=== PATIENT | female | born 1945 | race African-American/Black ===

== ENCOUNTER → 2016-10-24 | Outpatient (CLI) | payer OTHER ==
[~2016-10-24] MED LIST: CIPR-173 PO; CLON0.1T PO; ENAL2.5T PO; ERGO1CAP6 PO; NAPR-223 PO
== END | disposition home or self-care (01) ==
LOC: XY 09:01
PROVIDERS: ATTEND Internal Medicine
DX: I10 Essential (primary) hypertension (principal); N28.1 Cyst of kidney, acquired; Z95.5 Presence of coronary angioplasty implant and graft
CPT/HCPCS: 76775; 93923

== ENCOUNTER 2016-12-10 07:48 | Inpatient (IN) | payer OTHER ==
[~2016-12-10] VITALS: Ht 165.1 cm; Wt 75.9 kg
[2016-12-10] MEDS ORDERED: cloNIDine HCL 0.1 MG TAB PO ONE (08:30)
[2016-12-10 09:56] LABS: Basophils # (auto) 0 uL; Basophils % (auto) 0.3 % (0.0-2.0); Eosinophils # (auto) 0.2 uL; Eosinophils % (auto) 2.3 % (0.0-7.0); Hematocrit 37.1 % (36.0-46.0); Hemoglobin 12.3 g/dL (12.2-16.2); Lymphocytes # (auto) 1.7 uL; Lymphocytes % (auto) 22.6 % (10.0-50.0); Mean Corpuscular Hemoglobin 30.9 pg (28.0-32.0); Mean Corpuscular Volume 93.7 fL (80.0-100.0); Mean Platelet Volume 8.5 fL (7.4-10.4); Monocytes # (auto) 0.5 uL; Monocytes % (auto) 7.1 % (0.0-12.0); Neutrophils % (auto) 67.7 % (37.0-80.0); Platelet Count (auto) 284 10^3/uL (140-450); Red Cell Distribution Width 14.3 % (11.6-16.0); White Blood Cell 7.4 10^3/uL (4.4-10.8)
[2016-12-10 10:10] LABS: Albumin 3.7 g/dL (3.4-5.0); BUN/Creatinine Ratio 15.3; Bilirubin, Total 1.3 mg/dL (0.2-1.0); Calcium 8.8 mg/dL (8.5-10.1); Potassium 3.7 mmol/L (3.5-5.1); Total Protein 7.7 g/dL (6.4-8.2)
[2016-12-10] MEDS ORDERED: SODIUM CHLORIDE 0.9% 1,000 ML IV ONE (10:25)
[2016-12-10] MEDS ORDERED: ENOXAPARIN SOD 80 MG/0.8ML SYRINGE SC ONE (10:30)
[2016-12-10] MEDS ORDERED: ASPirin 81 mg TAB PO ONE (10:30)
[2016-12-10] MEDS ORDERED: HCTZ 25 MG TAB PO ONE (11:30)
[2016-12-10] MEDS ORDERED: cloNIDine HCL 0.1 MG TAB PO PRN (11:30)
[2016-12-10] MEDS ORDERED: POTASSIUM CHL 10 Meq TABLET PO ONE (11:30)
[2016-12-10] MEDS ORDERED: HYDR-2652 PO (11:43)
[2016-12-10] MEDS ORDERED: MET50T PO (11:43)
[2016-12-10] MEDS ORDERED: OLME20TA19 PO (11:43)
[2016-12-10] MEDS ORDERED: ATOR20TA50 PO (11:43)
[2016-12-10] MEDS ORDERED: FURO40TA4 PO (11:43)
[2016-12-10] MEDS ORDERED: TEMAZEPAM 15 MG CAP PO PRN (11:45)
[2016-12-10] MEDS ORDERED: NITROGLYCERIN 0.4 MG SL TAB SL PRN (11:45)
[2016-12-10] MEDS ORDERED: MORPHINE SULF INJ 2 MG/ML SYRINGE 1ML IV PRN ×2 (11:45)
[2016-12-10] MEDS ORDERED: DOCUSATE SOD 100 MG CAP PO PRN (11:45)
[2016-12-10] MEDS ORDERED: ONDANSETRON HCL 4 MG/2 ML VIAL IV PRN (11:45)
[2016-12-10] MEDS ORDERED: ACETAMINOPHEN 325 MG TAB PO PRN (11:45)
[2016-12-10] MEDS: METOPROLOL TARTRATE 25 MG TAB PO SCH ×2 (12:00→21:54)
[2016-12-10] MEDS: FUROSEMIDE 40 MG TAB PO SCH (12:17)
[2016-12-10] MEDS: MULTIPLE VITAMIN TAB PO SCH (12:18)
[2016-12-10] MEDS: ENALAPRIL MALEATE 10 MG TAB PO SCH ×2 (12:18→21:54)
[2016-12-10] MEDS: hydrALAZINE HCL 25 MG TAB PO SCH ×2 (14:43→21:54)
[2016-12-10] MEDS: SODIUM CHLOR 0.9% PF (SALINE LOCK) 10ML VIAL IV SCH ×2 (14:43→21:53)
[2016-12-10] MEDS: LABETALOL HCL 5 MG/ML 4ML SYRINGE IV PRN ×2 (16:30→18:55)
[2016-12-10 17:00] VITALS: BP 156/90
[2016-12-10] MEDS: HYDROcodone-ACET 5/325MG TAB PO PRN (17:27)
[2016-12-10 22:00] VITALS: BP 149/72
[2016-12-10] MEDS ORDERED: ATORVASTATIN 20 MG TAB PO SCH (22:00)
[2016-12-11 05:00] VITALS: BP 121/52
[2016-12-11] MEDS: hydrALAZINE HCL 25 MG TAB PO SCH ×2 (05:31→13:51)
[2016-12-11] MEDS: SODIUM CHLOR 0.9% PF (SALINE LOCK) 10ML VIAL IV SCH ×2 (05:42→14:00)
[2016-12-11 06:32] LABS: Basophils # (auto) 0 uL; Basophils % (auto) 0.5 % (0.0-2.0); Eosinophils # (auto) 0.2 uL; Eosinophils % (auto) 2.7 % (0.0-7.0); Hematocrit 37.1 % (36.0-46.0); Hemoglobin 12.3 g/dL (12.2-16.2); Lymphocytes # (auto) 2.5 uL; Mean Corpuscular Volume 93.8 fL (80.0-100.0); Mean Platelet Volume 8.4 fL (7.4-10.4); Monocytes # (auto) 0.6 uL; Monocytes % (auto) 8.1 % (0.0-12.0); Neutrophils # (auto) 4.6 uL; Neutrophils % (auto) 57.7 % (37.0-80.0); Platelet Count (auto) 309 10^3/uL (140-450); White Blood Cell 7.9 10^3/uL (4.4-10.8)
[2016-12-11 06:42] LABS: Calcium 8.4 mg/dL (8.5-10.1); Potassium 3.6 mmol/L (3.5-5.1)
[2016-12-11 06:46] LABS: Albumin 3.6 g/dL (3.4-5.0); BUN/Creatinine Ratio 18.2
[2016-12-11 07:03] LABS: Bilirubin, Total 1.1 mg/dL (0.2-1.0); Total Protein 7.7 g/dL (6.4-8.2)
[2016-12-11 08:05] VITALS: BP 121/52
[2016-12-11 09:00] VITALS: BP 135/64
[2016-12-11] MEDS ORDERED: HCTZ 25 MG TAB PO SCH (10:00)
[2016-12-11] MEDS ORDERED: POTASSIUM CHL 10 Meq TABLET PO SCH (10:00)
[2016-12-11] MEDS ORDERED: ASPirin-EC 81 mg tab PO SCH (10:00)
[2016-12-11] MEDS ORDERED: PATIENTS OWN MEDICATION PO SCH ×2 (10:00)
[2016-12-11] MEDS: MULTIPLE VITAMIN TAB PO SCH (10:22)
[2016-12-11] MEDS: METOPROLOL TARTRATE 25 MG TAB PO SCH (10:22)
[2016-12-11] MEDS: FUROSEMIDE 40 MG TAB PO SCH (10:22)
[2016-12-11] MEDS: ENALAPRIL MALEATE 10 MG TAB PO SCH (10:23)
[2016-12-11 13:00] VITALS: BP 146/61
[2016-12-11] MEDS: HYDROcodone-ACET 5/325MG TAB PO PRN (13:51)
[2016-12-11 17:00] VITALS: BP 185/83
[2016-12-11] MEDS ORDERED: amLODIPine BESYLATE 5 MG TAB PO STA (17:24)
[2016-12-11] MEDS ORDERED: CLON0.1T PO (17:43)
[2016-12-11 18:34] VITALS: BP 185/83
== END 2016-12-11 18:55 | disposition home or self-care (01) | DRG 292 ==
LOC: ER 07:48 → TELE 07:49 → TELE-E-ADS 13:53 → TELE-EAST 14:55
PROVIDERS: ADMIT Internal Medicine; ATTEND Internal Medicine
DX: I13.0 Hypertensive heart and chronic kidney disease with heart failure and stage 1 through stage 4 chronic kidney disease, or unspecified chronic kidney disease (principal); I50.32 Chronic diastolic (congestive) heart failure; R51 Headache; N18.2 Chronic kidney disease, stage 2 (mild); M06.9 Rheumatoid arthritis, unspecified; E78.5 Hyperlipidemia, unspecified; Z83.3 Family history of diabetes mellitus; Z80.9 Family history of malignant neoplasm, unspecified; Z82.49 Family history of ischemic heart disease and other diseases of the circulatory system; Z98.890 Other specified postprocedural states
CPT/HCPCS: 36415; 71010; 80053; 84484; 85025; 93005; 94761; 96360; 96372; J3490

== ENCOUNTER → 2017-04-01 | Outpatient (CLI) | payer OTHER ==
[~2017-04-01] MED LIST changes: +ATOR20TA50 PO; -CIPR-173 PO; +FURO40TA4 PO; +HYDR-2652 PO; +MET50T PO; -NAPR-223 PO
[2017-04-01 09:22] LABS: Basophils # (auto) 0 uL; Basophils % (auto) 0.4 % (0.0-2.0); CONDITION Y; Eosinophils # (auto) 0.2 uL; Eosinophils % (auto) 2.2 % (0.0-7.0); Hematocrit 38.1 % (36.0-46.0); Hemoglobin 12.6 g/dL (12.2-16.2); Lymphocytes # (auto) 1.9 uL; Lymphocytes % (auto) 22.3 % (10.0-50.0); Mean Corpuscular Hemoglobin 31.6 pg (28.0-32.0); Mean Corpuscular Volume 95.5 fL (80.0-100.0); Mean Platelet Volume 8.9 fL (7.4-10.4); Monocytes # (auto) 0.5 uL; Monocytes % (auto) 5.6 % (0.0-12.0); Neutrophils % (auto) 69.5 % (37.0-80.0); Platelet Count (auto) 272 10^3/uL (140-450); Red Cell Distribution Width 14.9 % (11.6-16.0); White Blood Cell 8.7 10^3/uL (4.4-10.8)
[2017-04-01 09:26] LABS: Albumin 3.7 g/dL (3.4-5.0); BUN/Creatinine Ratio 15.9; Bilirubin, Total 1.1 mg/dL (0.2-1.0); Phosphorus 2.9 mg/dL (2.5-4.90); Total Protein 7.7 g/dL (6.4-8.2)
== END | disposition home or self-care (01) ==
LOC: LAB 08:17
PROVIDERS: ATTEND Internal Medicine
DX: Z00.00 Encounter for general adult medical examination without abnormal findings (principal); I10 Essential (primary) hypertension; E78.2 Mixed hyperlipidemia
CPT/HCPCS: 36415; 80053; 80061; 84100; 84443; 85025

== ENCOUNTER 2017-10-03 21:38 | Emergency (ER) | payer MEDICARE, OTHER ==
[~2017-10-03] VITALS: Ht 165.1 cm; Wt 68.9 kg
[~2017-10-03 21:38] MED LIST changes: -HYDR-2652 PO; +HYDR50TA15 PO
[2017-10-03] MEDS ORDERED: cloNIDine HCL 0.1 MG TAB ONE (22:01)
[2017-10-03] MEDS ORDERED: ONDANSETRON HCL 4 MG/2 ML VIAL IV ONE (22:15)
[2017-10-03] MEDS ORDERED: SODIUM CHLORIDE 0.9% 1,000 ML IV ONE (22:15)
[2017-10-03] MEDS ORDERED: cloNIDine HCL 0.1 MG TAB PO ONE (22:15)
[2017-10-03 22:55] LABS: Basophils # (auto) 0.1 uL; Basophils % (auto) 1.2 % (0.0-2.0); Eosinophils # (auto) 0.2 uL; Eosinophils % (auto) 1.4 % (0.0-7.0); Hematocrit 41.7 % (36.0-46.0); Hemoglobin 13.4 g/dL (12.2-16.2); Lymphocytes # (auto) 1.7 uL; Lymphocytes % (auto) 13.3 % (10.0-50.0); Mean Corpuscular Hemoglobin 30.8 pg (28.0-32.0); Mean Corpuscular Hgb Conc. 32.1 g/dL (32.0-36.0); Mean Corpuscular Volume 95.8 fL (80.0-100.0); Monocytes # (auto) 0.7 uL; Monocytes % (auto) 5.4 % (0.0-12.0); Neutrophils # (auto) 9.7 uL; Neutrophils % (auto) 78.7 % (37.0-80.0); Nucleated Red Blood Cells % 0.1 %; Platelet Count (auto) 224 10^3/uL (140-450); Red Blood Cells 4.35 10^6/uL (4.0-5.20); Red Cell Distribution Width 14.1 % (11.8-14.3); White Blood Cell 12.4 10^3/uL (4.4-10.8)
[2017-10-03 23:34] LABS: Albumin 3.9 g/dL (3.4-5.0); BUN/Creatinine Ratio 15.5; Bilirubin, Total 1.3 mg/dL (0.2-1.0); Calcium 8.8 mg/dL (8.5-10.1); Potassium 3.5 mmol/L (3.5-5.1); Total Protein 8.1 g/dL (6.4-8.2)
[2017-10-04] MEDS ORDERED: SODIUM CHLORIDE 0.9% 1,000 ML IV ONE (08:30)
[2017-10-04] MEDS ORDERED: hydrALAZINE HCL 20 MG/ML VL IV ONE (08:30)
[2017-10-04 10:19] LABS: Urine Specific Gravity 1.036 (1.001-1.035)
[2017-10-04 10:20] LABS: Urine Blood Negative /uL (Negative)
[2017-10-04 10:23] LABS: Urine Bacteria FEW /hpf (None Seen); Urine WBC 6 /hpf (0 - 5)
[2017-10-04] MEDS ORDERED: GASTROGRAFIN 120 ML SOL ONE (11:05)
[2017-10-04 16:17] VITALS: BP 208/90
[2017-10-04] MEDS ORDERED: LABETALOL HCL 5 MG/ML ML 20ML VIAL IV ONE (17:00)
== END 2017-10-04 18:23 | disposition home or self-care (01) ==
LOC: ER 21:38
DX: K52.9 Noninfective gastroenteritis and colitis, unspecified (principal); N39.0 Urinary tract infection, site not specified; I11.0 Hypertensive heart disease with heart failure; I50.9 Heart failure, unspecified; M06.9 Rheumatoid arthritis, unspecified; E78.5 Hyperlipidemia, unspecified; Z87.442 Personal history of urinary calculi
CPT/HCPCS: 36415; 71046; 74176; 74250; 80053; 81001; 82150; 83690; 83735; 84443; 84484; 85025; 93005; 94761; 96361; 96374; 96375; 99285; J0360; J7030; Q9963

== ENCOUNTER 2019-02-13 19:46 | Inpatient (IN) | payer MEDICARE, MEDICAID ==
[~2019-02-13] VITALS: Ht 167.6 cm; Wt 79.1 kg
[2019-02-13] MEDS ORDERED: IODIXANOL 320MG/ML 100ML BTL IV ONE (20:41)
[2019-02-13 21:30] LABS: Basophils # (auto) 0.1 uL; Eosinophils # (auto) 0.1 uL; Eosinophils % (auto) 0.5 % (0.0-7.0); Hematocrit 37.5 % (36.0-46.0); Hemoglobin 12.4 g/dL (12.2-16.2); Lymphocytes % (auto) 8.8 % (10.0-50.0); Mean Corpuscular Hemoglobin 30.1 pg (28.0-32.0); Mean Corpuscular Volume 91.4 fL (80.0-100.0); Monocytes # (auto) 0.4 uL; Monocytes % (auto) 3.2 % (0.0-12.0); Neutrophils # (auto) 9.8 uL; Neutrophils % (auto) 86.5 % (37.0-80.0); Platelet Count (auto) 310 10^3/uL (140-450); Red Cell Distribution Width 14.4 % (11.8-14.3); White Blood Cell 11.3 10^3/uL (4.4-10.8)
[2019-02-13 21:39] LABS: Albumin 3.9 g/dL (3.4-5.0); Anion Gap 7 (5-15); Blood Urea Nitrogen 14 mg/dL (7-18); Calcium 8.8 mg/dL (8.5-10.1); Carbon Dioxide 28 mmol/L (21-32); Chloride 104 mmol/L (98-107); Glucose 131 mg/dL (74-106); Lipase 97 U/L (73-393); Potassium 3.4 mmol/L (3.5-5.1); Sodium 139 mmol/L (136-145)
[2019-02-13 21:46] LABS: Alanine Aminotransferase 19 U/L (13-56); Alkaline Phosphatase 78 U/L (45-117); Aspartate Aminotransferase 22 U/L (15-37); BUN/Creatinine Ratio 16.9; Bilirubin, Total 0.8 mg/dL (0.2-1.0); GFR African American 86 mL/min; GFR Non-African American 71 mL/min; Total Protein 8.5 g/dL (6.4-8.2)
[2019-02-14] MEDS ORDERED: ONDANSETRON HCL 4 MG/2 ML VIAL IV ONE (02:45)
[2019-02-14] MEDS ORDERED: fentaNYL CITRATE 100 MCG/2 ML VL IV ONE (02:45)
[2019-02-14] MEDS ORDERED: KETOROLAC TROMETH 30 MG/ML 1ML VIAL IV ONE (02:45)
[2019-02-14] MEDS ORDERED: LEVOFLOXACIN 750MG 150 ML IV ONE (02:45)
[2019-02-14 02:46] LABS: Urine Bacteria NONE SEEN /hpf (None Seen); Urine Blood TRACE /uL (Negative); Urine Mucus FEW (None Seen); Urine WBC 1 /hpf (0 - 5)
[2019-02-14 03:01] LABS: Urine Specific Gravity > 1.050 (1.001-1.035)
[2019-02-14] MEDS ORDERED: SODIUM CHLORIDE 0.9% 1,000 ML IV SCH (03:15)
[2019-02-14] MEDS ORDERED: MORPHINE SULF INJ 2 MG/ML SYRINGE 1ML IV PRN (03:15)
[2019-02-14] MEDS ORDERED: ACETAMINOPHEN 500 MG TAB PO PRN (03:15)
[2019-02-14] MEDS ORDERED: ONDANSETRON HCL 4 MG/2 ML VIAL IV PRN (03:15)
[2019-02-14] MEDS ORDERED: hydrALAZINE HCL 20 MG/ML VL IV PRN (03:30)
[2019-02-14 05:54] VITALS: BP 154/95
[2019-02-14] MEDS ORDERED: metroNIDAZOLE 500MG/100ML 100 ML IV SCH (06:00)
[2019-02-14 06:05] LABS: Basophils # (auto) 0.1 uL; Basophils % (auto) 0.7 % (0.0-2.0); Eosinophils # (auto) 0 uL; Eosinophils % (auto) 0.3 % (0.0-7.0); Hematocrit 34.6 % (36.0-46.0); Hemoglobin 11.6 g/dL (12.2-16.2); Lymphocytes % (auto) 13.1 % (10.0-50.0); Mean Corpuscular Hemoglobin 30.8 pg (28.0-32.0); Mean Corpuscular Hgb Conc. 33.7 g/dL (32.0-36.0); Mean Corpuscular Volume 91.4 fL (80.0-100.0); Monocytes # (auto) 0.4 uL; Monocytes % (auto) 5.4 % (0.0-12.0); Neutrophils # (auto) 6.2 uL; Neutrophils % (auto) 80.5 % (37.0-80.0); Platelet Count (auto) 287 10^3/uL (140-450); Red Blood Cells 3.78 10^6/uL (4.0-5.20); Red Cell Distribution Width 14.3 % (11.8-14.3); White Blood Cell 7.7 10^3/uL (4.4-10.8)
[2019-02-14 06:13] LABS: Calcium 8.8 mg/dL (8.5-10.1); Potassium 3.3 mmol/L (3.5-5.1)
[2019-02-14 06:21] LABS: INR 0.92 (0.9-1.15); Partial Thromboplastin Time 26.1 sec (23.64-32.05)
--- NOTE | 2019-02-14 07:20 | NUR ---
Opening Shift Note Assumed care of patient, awake and alert. No S/S of distress/SOB or pain. Instructed on POC and to call for assist PRN, will continue to monitor for changes Q1hr and PRN.
[2019-02-14 08:00] VITALS: BP 132/65
[2019-02-14 09:00] VITALS: BP 132/65
[2019-02-14] MEDS ORDERED: cefTRIAXone 1GM/50ML D5W 50 ML IV SCH (09:00)
[2019-02-14] MEDS ORDERED: FAMOTIDINE (10MG/ML) 2ML VL IV SCH (10:00)
[2019-02-14] MEDS ORDERED: amLODIPine BESYLATE 5 MG TAB PO SCH (10:00)
--- NOTE | 2019-02-14 11:10 | NUR ---
Surgical Consult Received call from Dr. Leon. Orders received
[2019-02-14] MEDS ORDERED: GASTROGRAFIN 120 ML SOL ONE (12:13)
[2019-02-14 13:00] VITALS: BP 154/80
--- NOTE | 2019-02-14 13:37 | NUR ---
AMA Patient pulled out IV and NG Tube stating she is going to leave AMA. Dr. Lomas notified and aware. Patient walked out of room and towards door before able to sign AMA paperwork. Security notified.
--- NOTE | 2019-02-14 13:51 | NUR ---
Patient's son called and notified.
--- NOTE | 2019-02-14 13:52 | NUR ---
Security able to bring patient back to floor to sign AMA paperwork. Addendum: 02/14/19 at 1401 by SEVERO CABRERA RN AMA Note GILBERT BLOOD states they want to leave the hospital Against Medical Advice (AMA). Patient encouraged to stay for further treatment/stabilization. KATE HERZOG MD notified of patient's wishes. Patient advised of the risks and benefits of leaving AMA. Patient verbalized understanding. Patient encouraged to return to the ER if symptoms do not improve or worsen.
== END 2019-02-14 14:00 | disposition left against medical advice (07) | DRG 395 ==
LOC: ER 19:49 → OVERFLOW 02-14 03:18 → CENTRAL 02-14 05:20
PROVIDERS: ADMIT Nurse Practitioner Family; ATTEND Nurse Practitioner Family
DX: K46.0 Unspecified abdominal hernia with obstruction, without gangrene (principal); I11.0 Hypertensive heart disease with heart failure; F03.90 Unspecified dementia, unspecified severity, without behavioral disturbance, psychotic disturbance, mood disturbance, and anxiety; F41.9 Anxiety disorder, unspecified; M19.90 Unspecified osteoarthritis, unspecified site; Z53.21 Procedure and treatment not carried out due to patient leaving prior to being seen by health care provider; I50.9 Heart failure, unspecified; Z79.899 Other long term (current) drug therapy; Z82.49 Family history of ischemic heart disease and other diseases of the circulatory system; Z98.51 Tubal ligation status; Z83.3 Family history of diabetes mellitus; Z87.442 Personal history of urinary calculi
CPT/HCPCS: 36415; 71045; 74177; 80048; 80053; 81001; 83690; 84484; 85025; 85610; 85730; 93005; 94761; 96365; 96367; 96375; G0378; J0696; J1885; J1956; J2405; J3490; Q9967

== ENCOUNTER 2019-02-14 15:59 | Emergency (ER) | payer MEDICARE, MEDICAID ==
[~2019-02-14] VITALS: Ht 170.2 cm; Wt 63.5 kg
[2019-02-14 16:58] VITALS: BP 143/80
[2019-02-14 17:35] LABS: Albumin 3.7 g/dL (3.4-5.0); Basophils # (auto) 0.1 uL; Basophils % (auto) 0.7 % (0.0-2.0); Calcium 8.9 mg/dL (8.5-10.1); Eosinophils # (auto) 0.1 uL; Eosinophils % (auto) 1.5 % (0.0-7.0); Hematocrit 38.7 % (36.0-46.0); Hemoglobin 12.6 g/dL (12.2-16.2); Lymphocytes # (auto) 1.4 uL; Lymphocytes % (auto) 15.7 % (10.0-50.0); Mean Corpuscular Hemoglobin 29.8 pg (28.0-32.0); Mean Corpuscular Hgb Conc. 32.6 g/dL (32.0-36.0); Mean Corpuscular Volume 91.4 fL (80.0-100.0); Monocytes # (auto) 0.6 uL; Monocytes % (auto) 6.8 % (0.0-12.0); Neutrophils # (auto) 6.5 uL; Neutrophils % (auto) 75.3 % (37.0-80.0); Nucleated Red Blood Cells % 0.1 %; Platelet Count (auto) 313 10^3/uL (140-450); Potassium 3.2 mmol/L (3.5-5.1); Red Blood Cells 4.24 10^6/uL (4.0-5.20); Red Cell Distribution Width 14.4 % (11.8-14.3); White Blood Cell 8.6 10^3/uL (4.4-10.8)
[2019-02-14 17:38] LABS: BUN/Creatinine Ratio 15.6; Bilirubin, Total 1.1 mg/dL (0.2-1.0); Total Protein 8.3 g/dL (6.4-8.2)
[2019-02-14] MEDS ORDERED: POTASSIUM EFFERVESENT TAB 25 MEQ PO ONE (18:15)
== END 2019-02-14 18:43 | disposition home or self-care (01) ==
LOC: ER 16:00
DX: E87.6 Hypokalemia (principal); F41.9 Anxiety disorder, unspecified; M19.90 Unspecified osteoarthritis, unspecified site; E78.5 Hyperlipidemia, unspecified; I11.0 Hypertensive heart disease with heart failure; I50.9 Heart failure, unspecified; Z98.51 Tubal ligation status; Z79.899 Other long term (current) drug therapy
CPT/HCPCS: 36415; 74176; 80053; 85025

== ENCOUNTER 2019-08-06 13:41 | Inpatient (IN) | payer MEDICAID, MEDICARE ==
[~2019-08-06] VITALS: Ht 172.7 cm; Wt 79.0 kg
[2019-08-06 14:20] LABS: Urine Bacteria FEW /hpf (None Seen); Urine Blood Negative /uL (Negative); Urine Mucus FEW (None Seen); Urine Specific Gravity 1.015 (1.001-1.035); Urine WBC 27 /hpf (0 - 5)
[2019-08-06] MEDS ORDERED: SODIUM CHLORIDE 0.9% 1,000 ML IV ONE (17:42)
[2019-08-06] MEDS ORDERED: cefTRIAXone 1GM/50ML D5W 50 ML IV ONE ×2 (17:45→19:15)
[2019-08-06] MEDS ORDERED: GASTROGRAFIN 120 ML SOL ONE (18:21)
[2019-08-06 18:28] LABS: Basophils # (auto) 0.1 uL; Basophils % (auto) 0.8 % (0.0-2.0); Eosinophils # (auto) 0 uL; Eosinophils % (auto) 0.2 % (0.0-7.0); Hematocrit 42.1 % (36.0-46.0); Hemoglobin 14.3 g/dL (12.2-16.2); Lymphocytes # (auto) 1.4 uL; Lymphocytes % (auto) 14.3 % (10.0-50.0); Mean Corpuscular Hgb Conc. 34.1 g/dL (32.0-36.0); Monocytes # (auto) 0.4 uL; Neutrophils % (auto) 80.7 % (37.0-80.0); Platelet Count (auto) 327 10^3/uL (140-450); Red Blood Cells 4.48 10^6/uL (4.0-5.20); Red Cell Distribution Width 14.2 % (11.8-14.3)
[2019-08-06 18:49] LABS: Albumin 3.8 g/dL (3.4-5.0); Anion Gap 11 (5-15); Blood Urea Nitrogen 11 mg/dL (7-18); Calcium 9.3 mg/dL (8.5-10.1); Carbon Dioxide 27 mmol/L (21-32); Chloride 100 mmol/L (98-107); Glucose 89 mg/dL (74-106); Potassium 3.7 mmol/L (3.5-5.1); Sodium 138 mmol/L (136-145)
[2019-08-06 18:51] LABS: Alanine Aminotransferase 21 U/L (13-56); Aspartate Aminotransferase 24 U/L (15-37); BUN/Creatinine Ratio 12.8; GFR African American 83 mL/min; GFR Non-African American 68 mL/min
[2019-08-06 18:52] LABS: INR 0.97 (0.9-1.15); Partial Thromboplastin Time 27.8 sec (23.64-32.05)
[2019-08-06 18:56] LABS: Alkaline Phosphatase 76 U/L (45-117); Bilirubin, Total 1.5 mg/dL (0.2-1.0)
[2019-08-06] MEDS ORDERED: traMADol HCL 50 MG TAB PO PRN (19:15)
[2019-08-06] MEDS ORDERED: TEMAZEPAM 15 MG CAP PO PRN (19:15)
[2019-08-06] MEDS ORDERED: MORPHINE SULF INJ 2 MG/ML SYRINGE 1ML IV PRN ×2 (19:15)
[2019-08-06] MEDS ORDERED: PROMETHAZINE HCL 25 MG/ML 1ML IV PRN (19:15)
[2019-08-06] MEDS ORDERED: NITROGLYCERIN 0.4 MG SL TAB SL PRN (19:15)
[2019-08-06] MEDS ORDERED: ACETAMINOPHEN 500 MG TAB PO PRN (19:15)
[2019-08-06 20:06] LABS: Amylase 79 U/L (25-115); Lipase 89 U/L (73-393)
[2019-08-06] MEDS: SODIUM CHLORIDE 0.9% 1,000 ML IV SCH (20:33)
[2019-08-06] MEDS: FAMOTIDINE (10MG/ML) 2ML VL IV SCH (20:34)
--- NOTE | 2019-08-06 21:20 | NUR ---
Telemetry admit from ER GILBERT BLOOD admitted to Telemetry unit after SBAR received. Patient oriented to Cira GomezRN primary RN, unit, room, bed, and unit policies regarding patient care and visiting hours. Patient now on continuous telemetry monitoring, tele box #50 and telemetry reading on arrival to unit is NSR. AAOx4, ambulatory with standby assist. On room air. No acute S/S of distress, SOB or pain. Patient weighed by bed scale and encouraged to call if they need something. All questions and concerns addressed, patient verbalized understanding. Bed in lowest locked position, side rails up x2, call light within reach. Will continue to monitor every hour and as needed.
[2019-08-06 22:00] VITALS: BP 154/82
[2019-08-06] MEDS: cloNIDine HCL 0.1 MG TAB PO SCH (22:00)
[2019-08-06] MEDS: METOPROLOL TARTRATE 50 MG TAB PO SCH (22:00)
[2019-08-06] MEDS: metroNIDAZOLE 500MG/100ML 100 ML IV SCH (22:00)
[2019-08-06 22:55] VITALS: BP 154/82
[2019-08-06] MEDS ORDERED: AMLO5TAB15 PO (23:14)
[2019-08-06] MEDS: ENALAPRIL MALEATE 10 MG TAB PO SCH (23:56)
[2019-08-07] MEDS: SODIUM CHLORIDE 0.9% 1,000 ML IV SCH ×2 (05:12→21:50)
[2019-08-07 05:45] VITALS: BP 119/56
[2019-08-07] MEDS: metroNIDAZOLE 500MG/100ML 100 ML IV SCH ×3 (06:10→21:51)
[2019-08-07] MEDS: cloNIDine HCL 0.1 MG TAB PO SCH ×3 (06:10→21:58)
[2019-08-07 06:29] LABS: Basophils # (auto) 0.1 uL; Basophils % (auto) 0.7 % (0.0-2.0); Eosinophils # (auto) 0.1 uL; Eosinophils % (auto) 1.6 % (0.0-7.0); Hematocrit 36.2 % (36.0-46.0); Hemoglobin 12.3 g/dL (12.2-16.2); Lymphocytes # (auto) 1.3 uL; Lymphocytes % (auto) 17.9 % (10.0-50.0); Mean Corpuscular Hemoglobin 32.1 pg (28.0-32.0); Mean Corpuscular Hgb Conc. 34.1 g/dL (32.0-36.0); Mean Corpuscular Volume 94.3 fL (80.0-100.0); Monocytes # (auto) 0.5 uL; Monocytes % (auto) 7.2 % (0.0-12.0); Neutrophils # (auto) 5.4 uL; Neutrophils % (auto) 72.6 % (37.0-80.0); Platelet Count (auto) 288 10^3/uL (140-450); Red Blood Cells 3.84 10^6/uL (4.0-5.20); Red Cell Distribution Width 14.2 % (11.8-14.3); White Blood Cell 7.4 10^3/uL (4.4-10.8)
[2019-08-07 06:30] LABS: Albumin 3.3 g/dL (3.4-5.0); BUN/Creatinine Ratio 14.4; Calcium 8.4 mg/dL (8.5-10.1); Potassium 3.4 mmol/L (3.5-5.1)
[2019-08-07 06:39] LABS: Bilirubin, Total 1.4 mg/dL (0.2-1.0); Total Protein 7.7 g/dL (6.4-8.2)
[2019-08-07] MEDS: FAMOTIDINE (10MG/ML) 2ML VL IV SCH ×2 (07:15→21:50)
[2019-08-07] MEDS: hydrALAZINE HCL 25 MG TAB PO SCH ×2 (08:00→12:00)
--- NOTE | 2019-08-07 08:07 | NUR ---
INITIAL ASSESSMENT FOUND ALERT COOPERATIVE. DEMONSTRATES STRENGTH AND COORDINATION WHEN STANDING. TEACHING ON SAFETY USE OF CALL LIGHT AND TV CONTROLS. SANTIAGO KNAPP CALLS ASSIST WITH HOW TO USE PHONE AND KEEP TUBING FREE FROM TANGLES. WROTE MY PHONE EXT ON THE BOARD. ENCOURAGED TO CALL FOR ANY NEEDS.
[2019-08-07] MEDS ORDERED: cefTRIAXone 1GM/50ML D5W 50 ML IV SCH (09:00)
[2019-08-07 09:10] VITALS: BP 109/57
[2019-08-07] MEDS: ATORVASTATIN 20 MG TAB PO SCH (10:00)
[2019-08-07] MEDS: ENOXAPARIN SOD 40 MG/0.4 ML SYRINGE SC SCH (10:00)
[2019-08-07] MEDS: ENALAPRIL MALEATE 10 MG TAB PO SCH ×2 (10:00→21:58)
--- NOTE | 2019-08-07 12:00 | NUR ---
PTS SON DANNA VISITS. SITS WITH PT. PLEASANTLY CONFUSED.
[2019-08-07 12:22] VITALS: BP 125/57
[2019-08-07] MEDS ORDERED: POTASSIUM EFFERVESENT TAB 25 MEQ PO ONE ×2 (13:45→19:15)
[2019-08-07 17:00] VITALS: BP 121/86
--- NOTE | 2019-08-07 17:59 | NUR ---
PT ELOPES DOWN STAIR WELL SETTING OFF THE ALARM. CONFUSED STATING SHE IS GOING [place]CR[place] TO WHERE HER DAUGHTER SHANEL IS WORKING. 4 STAFF MEMBERS RESPOND TO COUCH PT BACK TO HER ROOM. FAMILY CONTACTED MADE AWARE. FAMILY STATES COMING IN TO SIT WITH HER.
--- NOTE | 2019-08-07 19:00 | NUR ---
OPEN SHIFT NOTE PATIENT IS ALERT AND ORIENTED, FAMILY IS AT BEDSIDE. PATIENT IS IN BED WITH SIDE RAILS UP X2 FOR SAFETY WITH CALL LIGHT WITHIN REACH. POC DISCUSSED WITH PATIENT. WILL CONTINUE TO ROUND Q1HR AND PRN.
[2019-08-07] MEDS: METOPROLOL TARTRATE 50 MG TAB PO SCH (19:15)
--- NOTE | 2019-08-07 21:00 | NUR ---
IV removal IV was accidently pulled out of right hand, catheter was fully intact. Pressure dressing applied to site. Patient tolerated well.
--- NOTE | 2019-08-07 21:35 | NUR ---
IV insertion IV access obtained, via clean sterile technique by inserting 22 gauge catheter at left hand after 1 attempt. IV secured properly. No trauma to site. Patient tolerated well.
[2019-08-07 22:00] VITALS: BP 116/61
[2019-08-08] MEDS: SODIUM CHLORIDE 0.9% 1,000 ML IV SCH ×2 (01:12→11:12)
[2019-08-08 05:00] VITALS: BP 150/87
[2019-08-08] MEDS: cloNIDine HCL 0.1 MG TAB PO SCH (05:45)
[2019-08-08] MEDS: metroNIDAZOLE 500MG/100ML 100 ML IV SCH (05:45)
[2019-08-08] MEDS: FAMOTIDINE (10MG/ML) 2ML VL IV SCH (06:58)
--- NOTE | 2019-08-08 07:18 | NUR ---
Opening Shift Note Assumed care of patient, awake and alert. No S/S of distress/SOB or pain. Instructed on POC and to call for assist PRN, will continue to monitor for changes Q1hr and PRN.
[2019-08-08 09:00] VITALS: BP 126/84
[2019-08-08] MEDS: ATORVASTATIN 20 MG TAB PO SCH (09:29)
[2019-08-08] MEDS: METOPROLOL TARTRATE 50 MG TAB PO SCH (09:30)
[2019-08-08] MEDS: hydrALAZINE HCL 25 MG TAB PO SCH (09:30)
[2019-08-08] MEDS: ENOXAPARIN SOD 40 MG/0.4 ML SYRINGE SC SCH (09:32)
[2019-08-08] MEDS: ENALAPRIL MALEATE 10 MG TAB PO SCH (10:00)
[2019-08-08 10:23] VITALS: BP 126/81
--- NOTE | 2019-08-08 11:39 | NUR ---
Discharge instructions given as ordered. Encourage to follow up with primary care provider as instructed. All questions and concerns addressed. Patient verbalized understanding. IV removed with catheter intact, pressure dressing applied. Telemetry unit returned to ICU. Patient taken to vehicle via wheelchair with all personal belongings, accompanied by staff and family member. No distress noted at time of departure.
== END 2019-08-08 11:39 | disposition home or self-care (01) | DRG 389 ==
LOC: ER 13:43 → TELE 13:44 → TELE-WESTW 21:21
PROVIDERS: ADMIT Internal Medicine; ATTEND Internal Medicine
DX: K56.699 Other intestinal obstruction unspecified as to partial versus complete obstruction (principal); N39.0 Urinary tract infection, site not specified; I11.0 Hypertensive heart disease with heart failure; K52.9 Noninfective gastroenteritis and colitis, unspecified; F41.9 Anxiety disorder, unspecified; F03.90 Unspecified dementia, unspecified severity, without behavioral disturbance, psychotic disturbance, mood disturbance, and anxiety; E78.5 Hyperlipidemia, unspecified; N20.0 Calculus of kidney; I25.10 Atherosclerotic heart disease of native coronary artery without angina pectoris; I50.9 Heart failure, unspecified; K59.00 Constipation, unspecified; M19.90 Unspecified osteoarthritis, unspecified site; N28.1 Cyst of kidney, acquired; R93.89 Abnormal findings on diagnostic imaging of other specified body structures; Z82.3 Family history of stroke; Z86.73 Personal history of transient ischemic attack (TIA), and cerebral infarction without residual deficits; Z87.442 Personal history of urinary calculi
CPT/HCPCS: 36415; 71045; 74176; 74250; 76856; 80053; 81001; 82150; 83690; 84484; 85025; 85610; 85730; 87086; 96365; 96375; G0378; J0696; J3490

== ENCOUNTER 2019-09-30 18:38 | Emergency (ER) | payer MEDICARE, MEDICAID ==
[~2019-09-30] VITALS: Ht 172.7 cm; Wt 81.6 kg
[~2019-09-30 18:38] MED LIST changes: +AMLO5TAB15 PO
[2019-09-30 19:21] VITALS: BP 149/70
[2019-09-30 20:07] LABS: Basophils # (auto) 0.2 uL; Basophils % (auto) 1.2 % (0.0-2.0); Eosinophils # (auto) 0.3 uL; Eosinophils % (auto) 2.1 % (0.0-7.0); Hematocrit 38.6 % (36.0-46.0); Hemoglobin 12.6 g/dL (12.2-16.2); Lymphocytes % (auto) 15.2 % (10.0-50.0); Mean Corpuscular Hemoglobin 31.1 pg (28.0-32.0); Mean Corpuscular Hgb Conc. 32.7 g/dL (32.0-36.0); Mean Corpuscular Volume 94.9 fL (80.0-100.0); Monocytes % (auto) 7.7 % (0.0-12.0); Neutrophils # (auto) 9.9 uL; Neutrophils % (auto) 73.8 % (37.0-80.0); Nucleated Red Blood Cells % 0.1 %; Platelet Count (auto) 285 10^3/uL (140-450); Red Blood Cells 4.07 10^6/uL (4.0-5.20); Red Cell Distribution Width 14.3 % (11.8-14.3); White Blood Cell 13.5 10^3/uL (4.4-10.8)
[2019-09-30 20:24] LABS: Albumin 3.7 g/dL (3.4-5.0); Calcium 9.4 mg/dL (8.5-10.1); Potassium 4.1 mmol/L (3.5-5.1)
[2019-09-30 20:27] LABS: BUN/Creatinine Ratio 9.4
[2019-09-30 20:29] LABS: Bilirubin, Total 0.6 mg/dL (0.2-1.0); Total Protein 8.7 g/dL (6.4-8.2)
== END 2019-09-30 22:21 | disposition left against medical advice (07) ==
LOC: ER 18:41
DX: R05 Cough (principal); Z53.21 Procedure and treatment not carried out due to patient leaving prior to being seen by health care provider
CPT/HCPCS: 36415; 80053; 82962; 85025